=== PATIENT | male | born 1985 | race Caucasian/White ===

== ENCOUNTER 2021-04-11 16:23 | Emergency (ER) | payer MEDICARE, OTHER ==
[~2021-04-11 16:23] MED LIST: DUONEB 2.5-0.5M1 AMP INH; PERCOCET 10-321 EACH PO; PROAIR HFA8.5 GM INH; SYMBICORT 80-10.2 GM INH; TRANEXAMIC ACID
== END 2021-04-11 18:20 | disposition home or self-care (01) ==
LOC: FER 16:23
DX: S63.654A Sprain of metacarpophalangeal joint of right ring finger, initial encounter (principal); Z88.1 Allergy status to other antibiotic agents; W22.8XXA Striking against or struck by other objects, initial encounter; Y92.009 Unspecified place in unspecified non-institutional (private) residence as the place of occurrence of the external cause
CPT/HCPCS: 73130